=== PATIENT | female | born 1940 | race Caucasian/White ===

== ENCOUNTER → 2017-05-01 | Outpatient (CLI) | payer OTHER ==
--- NOTE | 2017-05-01 12:09 | RADRPT ---
PROCEDURE: XR pelvis and left hip. CLINICAL INDICATION: 68 TECHNIQUE: 2 views of the pelvis and left hip were performed. COMPARISON: None. FINDINGS: There is no evidence of acute fractures of the visualized pelvis. Iliac wings are intact. SI joints are symmetric. The pubic rami as are within normal limits. Status post right hip arthroplasty, with near anatomic alignment. There is osteoarthritis of the left hip, with joint space narrowing and sub chondral sclerosis. IMPRESSION: 1. No evidence of acute fractures of visualized pelvis and left hip. 2. Osteoarthritis of the left hip. 3. Status post right hip arthroplasty. RPTAT: AAPP Physician Ann Date Time Electronically viewed and signed by Physician Ann on 05/01/2017 12:09 JL/
--- NOTE | 2017-05-02 04:47 | HKNOTE ---
DATE OF SERVICE: 05/01/2017 MAIN COMPLAINT: Pain in the right hip. HISTORY OF MAIN COMPLAINT: The patient is a 76-year-old female who underwent a right hip replacemen t by Dr. Shepherd 10 years ago. She has been totally delighted with the results of the surgery. She now complains of pain in her left groin (hip). She comes in with her daughter. PRESENT COMPLAINTS: The patient's pain is localized to the groin and radiates to the anterior thigh . Pain is aggravated by walking and she does get night pain. She is limping and cannot walk more than about 2 blocks without stopping. She does not use a walking aid. She limps all the time. Her leg lengths feel equal. She does not have a shoe lift. She cannot clip her toenails, but she c an put on her shoes and socks. ACTIVITIES: Gardening. PAST ORTHOPEDIC HISTORY: Right hip replacement by Dr. Shepherd 10 years ago, at the [facility]. PRIOR CORTISONE INTAKE: None. ALCOHOL INTAKE: None. BLOOD TESTS FOR ARTHRITIS: None. PRIOR INJURIES TO HIPS OR KNEES: None. WORK STATUS: Patient is currently on leave from working at [employer] and she is set to retire. 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 Note that she is under the care of a ____ (the name of the provider relations representative is ____). She is being treated with a biologic ( Taltz) which hugely ____ her psoriasis. PAST SURGICAL HISTORY: Right hip replacement 10 years ago, bunion removed both feet 15 years ago. DRUG ALLERGIES: NONE. MEDICATIONS: 1. Sertraline (Zoloft) 50 mg daily. 2. Ativan 1 mg twice daily. 3. Taltz injected bimonthly for psoriasis (helps greatly). FAMILY HISTORY: Both parents . Noncontributory. SYSTEMS REVIEW: Poor appetite, varicose veins, gait disturbance, double vision on occasion, retenti on of urine. Otherwise negative. HABITS: The patient quit smoking 20 years ago. Alcohol intake: None. PHYSICAL EXAMINATION: GENERAL: The patient is a remarkably youthful 76-year-old female. She comes in with her daughter. She walks without a walking aid. VITAL SIGNS: Height 5 feet 6 inches, weight 124 pounds, blood pressure 190/80, temperature 97.8. GAIT: Patient's gait is antalgic. EXAMINATION OF THE RIGHT HIP: A full range of motion without pain. EXAMINATION OF THE LEFT HIP: Flexion is to 100 degrees, external rotation 35 degrees, internal rota tion 0 degrees (marked limitation of motion of the left hip) with pain at the limits of motion. LEFT KNEE: The left knee shows normal alignment. Active and passive extension is 0 degrees. Active and passive flexion is 135 degrees. The medial and lateral collateral ligaments and cruciate ligamen ts are intact. Helen test is negative. There is no effusion, tenderness, scarring, crepitus, or cy sts. The patella tracks normally. There is no tenderness on the articular surface of the patella or in the patellar groove. The Q angle is normal. RIGHT KNEE: The right knee shows normal alignment. Active and passive extension is 0 degrees. Activ e and passive flexion is 135 degrees. The medial and lateral collateral ligaments and cruciate ligam ents are intact. Helen test is negative. There is no effusion, tenderness, scarring, crepitus, or cysts. The patella tracks normally. There is no tenderness on the articular surface of the patella o r in the patellar groove. The Q angle is normal. IMAGING: Plain x-rays of the pelvis and hips obtained today at the [facility] and [place] were re viewed. The right hip shows a perfect right hip replacement. All components are well placed and we ll attached to the bone. No evidence of escobar, loosening or any other underlying problem. The left hip joint shows [id number] loss of joint space superomedially and medially. There is sti ll some remaining joint space superiorly. Subchondral sclerosis and intraosseous cyst formation. DIAGNOSES: 1. Advanced degenerative osteoarthritis of the left hip. 2. Status post right total hip replacement. 3. Autoimmune psoriasis. 4. Currently on biologic, Taltz. 5. Depression/anxiety (on Sertraline). MANAGEMENT: Patient advised that she most certainly will need to have a left hip replacement at [facility] in the near future. When she schedules her surgery we will need to contact the provider relations representative to prescribe the Taltz to determine what the timing for Taltz injection should be vis a vis her hip surgery. Her pie chef will have to clear her for surgery. I spent some time discussing newer developments in hip replacement surgery with her and her daughter (anterior hip replacement). Many further questions were asked and answered. Patient will call to schedule her surgery when she is ready to proceed. I have recommended that she consider either Dr. Peterson or Dr. Shepherd to perfo rm her surgery. She was given the cards for both of these physicians. Dictated By: DON HOLLOWAY/VERONICA Conf#: [id number] DID#: [id number]
== END | disposition home or self-care (01) ==
LOC: HKI 11:08
DX: M16.12 Unilateral primary osteoarthritis, left hip (principal); L40.9 Psoriasis, unspecified; F31.9 Bipolar disorder, unspecified; F41.9 Anxiety disorder, unspecified; Z96.641 Presence of right artificial hip joint
CPT/HCPCS: 20610; 73502; G0463